=== PATIENT | female | born 1970 | race Caucasian/White ===

== ENCOUNTER 2017-12-18 12:42 | Emergency (ER) | payer MEDICARE ==
[~2017-12-18] VITALS: Ht 162.6 cm; Wt 62.7 kg
[2017-12-18 12:51] VITALS: BP 120/63; PULSE 50; RESP 16; TEMP 97.8; O2SAT 97
[2017-12-18] MEDS ORDERED: MONT10TA4 PO (13:09)
--- NOTE | 2017-12-18 13:10 | PD ---
HPI Chief Complaint: GI Complaint Time Seen by Provider: 12:59 Travel History International Travel<30 days: No Contact w/Intl Traveler<30days: No Traveled to known affect area: No History of Present Illness HPI This patient complains of abdominal pain. The patient was seen and examined in the presence of the nurse. She complains of bilateral lower quadrant pain. Duration 2 days. Severity is moderate. She has some nausea but no vomiting. Had a small bowel movement this morning. He reports history of multiple episodes of diverticulitis. This has some features uncommon with her usual flare. No fever. No alleviating factors. No exacerbating factors. PFSH Past Medical History ?: Not Social History Alcohol Use: No Tobacco Use: No Substance Use: No Allergies-Medications (Allergen,Severity, Reaction): Coded Allergies: Sulfa (Sulfonamide Antibiotics) (Verified Allergy, Unknown, Hives, 12/18/17) metronidazole (Verified Allergy, Unknown, 12/18/17) lowers HR and BP tramadol (Verified Allergy, Unknown, 12/18/17) lowers HR and BP Reported Meds & Prescriptions Reported Meds & Active Scripts Active Reported Montelukast (Montelukast Sodium) 10 Mg Tab 10 Mg PO HS Review of Systems General / Constitutional: No: Fever Eyes: No: Visual changes HENT: No: Headaches Cardiovascular: No: Chest Pain or Discomfort Respiratory: No: Shortness of Breath Gastrointestinal: Positive: Nausea, Abdominal Pain Genitourinary: No: Dysuria Musculoskeletal: No: Pain Skin: No Rash Neurologic: No: Weakness Psychiatric: No: Depression Endocrine: No: Polydipsia Hematologic/Lymphatic: No: Easy Bruising Physical Exam Narrative GENERAL: Well-nourished, well-developed patient in no apparent distress. SKIN: Focused skin assessment reveals no rash and nodules. Skin is Warm and dry. HEAD: Atraumatic. Normocephalic. EYES: Pupils equal and round. No scleral icterus. No injection or drainage. ENT: No nasal bleeding or discharge. Mucous membranes pink and moist. NECK: Trachea midline. No JVD. CARDIOVASCULAR: Regular rate and rhythm. No murmur appreciated. RESPIRATORY: No accessory muscle use. Clear to auscultation. Breath sounds equal bilaterally. GASTROINTESTINAL: Abdomen soft, bilateral lower quadrant tenderness without rebound or guarding , nondistended. Hepatic and splenic margins not palpable. MUSCULOSKELETAL: No obvious deformities. No clubbing. No cyanosis. No edema. NEUROLOGICAL: Awake and alert. No obvious cranial nerve deficits. Motor grossly within normal limits. Normal speech. PSYCHIATRIC: Appropriate mood and affect; insight and judgment normal. Data Data Last Documented VS Vital Signs Date Time Temp Pulse Resp B/P (MAP) Pulse Ox O2 Delivery O2 Flow Rate FiO2 12/18/17 14:22 75 18 111/72 (85) 97 Room Air 12/18/17 12:51 97.8 Orders Orders Basic Metabolic Panel (Bmp) (12/18/17 13:06) Complete Blood Count With Diff (12/18/17 13:06) Ct Abd/Pel W/O Iv Contrast (12/18/17 13:06) Iv Access Insert/Monitor (12/18/17 13:06) NPO (12/18/17 13:06) Ed Urine Pregnancytest Poc (12/18/17 13:06) Labs Laboratory Tests Test 12/18/17 13:20 White Blood Count 8.5 TH/MM3 Red Blood Count 4.37 MIL/MM3 Hemoglobin 14.0 GM/DL Hematocrit 41.0 % Mean Corpuscular Volume 93.8 FL Mean Corpuscular Hemoglobin 32.0 PG Mean Corpuscular Hemoglobin Concent 34.1 % Red Cell Distribution Width 12.9 % Platelet Count 194 TH/MM3 Mean Platelet Volume 10.6 FL Neutrophils (%) (Auto) 64.3 % Lymphocytes (%) (Auto) 29.1 % Monocytes (%) (Auto) 5.1 % Eosinophils (%) (Auto) 0.9 % Basophils (%) (Auto) 0.6 % Neutrophils # (Auto) 5.4 TH/MM3 Lymphocytes # (Auto) 2.5 TH/MM3 Monocytes # (Auto) 0.4 TH/MM3 Eosinophils # (Auto) 0.1 TH/MM3 Basophils # (Auto) 0.1 TH/MM3 CBC Comment DIFF FINAL Differential Comment Blood Urea Nitrogen 11 MG/DL Creatinine 0.67 MG/DL Random Glucose 92 MG/DL Calcium Level 9.3 MG/DL Sodium Level 140 MEQ/L Potassium Level 3.4 MEQ/L Chloride Level 106 MEQ/L Carbon Dioxide Level 28.5 MEQ/L Anion Gap 6 MEQ/L Estimat Glomerular Filtration Rate 94 ML/MIN [facility] Medical Decision Making Medical Screen Exam Complete: Yes Emergency Medical Condition: Yes Medical Record Reviewed: Yes Differential Diagnosis Colitis, ileus, diverticulitis Narrative Course I have reviewed the patient's electronic medical record. Patient thinks this may be diverticulitis but it is an atypical presentation given the bilateral nature of her complaint. She's never been here before and no prior records to compare Therefore suggested a workup IV placed and labs sent and CT ordered I've ordered it without contrast given her reported allergy to IV contrast I review the workup with the patient. CT the scan shows no evidence of diverticulitis. Appendix is normal. Her labs are normal. I reviewed the workup with the patient. I offered pain and nausea medication which she declines. Recommend primary care follow-up. Advised her to return if she worsens. Diagnosis Primary Impression: Abdominal pain Qualified Codes: R10.30 - Lower abdominal pain, unspecified Additional Instructions: The patient was advised to follow up with their physician and return if they worsen. Med/Other Pt SpecificInfo: Other Disposition: 01 DISCHARGE HOME Condition: Stable Shoaib Jacobsen MD Dec 18, 2017 13:10
[2017-12-18 13:41] LABS: AUTOMATED NEUTROPHIL # 5.4 TH/MM3 (1.8-7.7); BASOPHIL # 0.1 TH/MM3 (0-0.2); BASOPHIL % 0.6 % (0.0-2.0); EOSINOPHIL # 0.1 TH/MM3 (0-0.4); EOSINOPHIL % 0.9 % (0.0-4.0); LYMPH % 29.1 % (9.0-44.0); LYMPHOCYTE # 2.5 TH/MM3 (1.0-4.8); MEAN CELL VOLUME 93.8 FL (80.0-100.0); MEAN CORPUSCULAR HGB CONC 34.1 % (32.0-36.0); MEAN PLATELET VOLUME 10.6 FL (7.0-11.0); MONO % 5.1 % (0.0-8.0); MONOCYTE # 0.4 TH/MM3 (0-0.9); NEUT % 64.3 % (16.0-70.0); PLATELET COUNT 194 TH/MM3 (150-450); RED BLOOD COUNT 4.37 MIL/MM3 (4.00-5.30); RED CELL DISTRIBUTION WIDTH 12.9 % (11.6-17.2); WHITE BLOOD COUNT 8.5 TH/MM3 (4.0-11.0)
[2017-12-18 13:48] LABS: CALCIUM 9.3 MG/DL (8.5-10.1)
[2017-12-18 13:49] LABS: BICARBONATE 28.5 MEQ/L (21.0-32.0)
[2017-12-18 13:52] LABS: CREATININE 0.67 MG/DL (0.50-1.00)
--- NOTE | 2017-12-18 14:03 | RADRPT ---
EXAM DATE/TIME: 12/18/2017 13:43 [facility] COMPARISON: No previous studies available for comparison. INDICATIONS : Abdominal pain and constipation. ORAL CONTRAST: No oral contrast ingested. RADIATION DOSE: 12.05 CTDIvol (mGy) MEDICAL HISTORY : Hypercholesterolemia. Diverticulitis. Lyme disease. Brain tumor. SURGICAL HISTORY : section. ENCOUNTER: Initial ACUITY: 2 weeks PAIN SCALE: 5/10 LOCATION: Bilateral flank abdomen TECHNIQUE: Volumetric scanning of the abdomen and pelvis was performed. Using automated exposure control and ad justment of the mA and/or kV according to patient size, radiation dose was kept as low as reasonably achievable to obtain optimal diagnostic quality images. DICOM format image data is available electro nically for review and comparison. FINDINGS: LOWER LUNGS: The visualized lower lungs are clear. LIVER: Homogeneous density. A total of 4 hepatic cysts are observed. The largest involves the dome of the li neli measuring 3.6 cm in diameter. Hounsfield units are 7. There is no dilation of the biliary tree. No calcified gallstones. SPLEEN: Normal size without lesion. PANCREAS: Within normal limits. KIDNEYS: Normal in size and shape. There is no mass, stone, or hydronephrosis. ADRENAL GLANDS: Within normal limits. VASCULAR: There is no aortic aneurysm. 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 This drains into the left r enal vein. BOWEL/MESENTERY: The stomach, small bowel, and colon demonstrate no acute abnormality. There is no free intraperitone al air or fluid. Scattered colonic diverticuli. No acute inflammation. Appendix is normal by CT crite alisha. ABDOMINAL WALL: Within normal limits. RETROPERITONEUM: There is no lymphadenopathy. BLADDER: No wall thickening or mass. REPRODUCTIVE: Within normal limits. INGUINAL: There is no lymphadenopathy or hernia. MUSCULOSKELETAL: Within normal limits for patient age. CONCLUSION: 1. No acute abnormality to explain the patient's pain. 2. Hepatic cysts. 3. Left-sided IVC. 4. Colonic diverticulosis. Jose Yepez Jr., MD on December 18, 2017 at 13:57 Board Certified Radiologist. This report was verified electronically.
[2017-12-18 14:22] VITALS: BP 111/72; PULSE 75; RESP 18; O2SAT 97
== END 2017-12-18 15:35 | disposition home or self-care (01) ==
LOC: PHED 12:42
DX: K76.89 Other specified diseases of liver (principal); K57.30 Diverticulosis of large intestine without perforation or abscess without bleeding; Z88.2 Allergy status to sulfonamides; Z88.8 Allergy status to other drugs, medicaments and biological substances; Z79.899 Other long term (current) drug therapy
CPT/HCPCS: 74176; 80048; 84703; 85025; 99284